=== PATIENT | female | born 1990 | race African-American/Black ===

== ENCOUNTER 2025-03-02 10:37 | Emergency (ER) | payer OTHER ==
[~2025-03-02] VITALS: Ht 165.1 cm; Wt 81.0 kg
[2025-03-02 12:06] LABS: BASOPHILS % 0.7 % (0.0-2.0); EOSINOPHILS % 2.9 % (0.0-5.0); HEMATOCRIT. 38.7 % (36.0-48.0); HEMOGLOBIN. 13.1 g/dL (12.0-16.0); LYMPHOCYTES % 41.1 % (20.0-50.0); MEAN CORPUSCULAR HEMOGLOBIN 28.5 pg (28.0-32.0); MEAN PLATELET VOLUME 8.9 fl (7.4-10.4); MONOCYTES % 4.3 % (2.0-8.0); PLATELET 297 x1000/uL (130-400); RED CELL DISTRIBUTION WIDTH 14.6 % (11.6-14.6); WHITE BLOOD COUNT 5.7 x1000/uL (4.5-11.0)
[2025-03-02 12:14] LABS: CARBON DIOXIDE 26 mEq/L (21-32); CHLORIDE 104 mEq/L (98-107); POTASSIUM 3.5 mEq/L (3.5-5.1); SODIUM 139 mEq/L (136-145)
[2025-03-02 12:15] LABS: CALCIUM 9.7 mg/dL (8.7-10.4)
[2025-03-02 12:19] LABS: CREATININE 0.8 mg/dL (0.6-1.0)
[2025-03-02 12:20] LABS: GLUCOSE 93 mg/dL (70-105); UREA NITROGEN BLOOD 11 mg/dL (9-23)
[2025-03-02] MEDS ORDERED: POLY17PO3 PO (12:41)
[2025-03-02 12:52] VITALS: BP 138/86; PULSE 89; RESP 16; TEMP 37.1; O2SAT 99
== END 2025-03-02 13:01 | disposition home or self-care (01) ==
LOC: ER 10:37
DX: K62.5 Hemorrhage of anus and rectum (principal); K59.00 Constipation, unspecified; Z90.49 Acquired absence of other specified parts of digestive tract
CPT/HCPCS: 36415; 80048; 85025; 99283